=== PATIENT | female | born 1975 | race Two or more races ===

== ENCOUNTER → 2024-08-11 | Emergency (ER) | payer OTHER ==
[~2024-08-11] VITALS: Ht 162.6 cm; Wt 54.0 kg
[~2024-08-11] MED LIST: DEXAMETHASONE SODIUM PHOSPHATE 4 MG/ML VIAL IM STA; KETOROLAC TROMETHAMINE 30 MG VIAL IM STA
== END | disposition home or self-care (01) ==
LOC: ER 15:00
DX: M54.31 Sciatica, right side (principal); Z88.0 Allergy status to penicillin